=== PATIENT | female | born 1960 | race Caucasian/White ===

== ENCOUNTER 2017-10-11 09:07 | Emergency (ER) | payer OTHER ==
[~2017-10-11] VITALS: Ht 160 cm; Wt 83.9 kg
[2017-10-11 09:34] LABS: Basophils # (auto) 0 uL; Basophils % (auto) 0.2 % (0.0-2.0); Eosinophils # (auto) 0 uL; Hematocrit 40.8 % (36.0-46.0); Hemoglobin 13.6 g/dL (12.2-16.2); Lymphocytes # (auto) 1.8 uL; Mean Corpuscular Hemoglobin 28.5 pg (28.0-32.0); Mean Corpuscular Hgb Conc. 33.4 g/dL (32.0-36.0); Mean Corpuscular Volume 85.4 fL (80.0-100.0); Monocytes # (auto) 0.4 uL; Monocytes % (auto) 7.1 % (0.0-12.0); Neutrophils # (auto) 4.1 uL; Neutrophils % (auto) 64.7 % (37.0-80.0); Platelet Count (auto) 228 10^3/uL (140-450); Red Blood Cells 4.78 10^6/uL (4.0-5.20); White Blood Cell 6.4 10^3/uL (4.4-10.8)
[2017-10-11 10:01] LABS: Alanine Aminotransferase 51 U/L (13-56); Albumin 3.9 g/dL (3.4-5.0); Alkaline Phosphatase 95 U/L (45-117); Anion Gap 8 (5-15); Aspartate Aminotransferase 34 U/L (15-37); BUN/Creatinine Ratio 22.4; Bilirubin, Total 0.4 mg/dL (0.2-1.0); Blood Urea Nitrogen 13 mg/dL (7-18); Calcium 8.9 mg/dL (8.5-10.1); Carbon Dioxide 25 mmol/L (21-32); Chloride 108 mmol/L (98-107); GFR African American 137 mL/min; GFR Non-African American 113 mL/min; Glucose 101 mg/dL (74-106); Magnesium 2.4 mg/dL (1.6-2.6); Potassium 3.7 mmol/L (3.5-5.1); Sodium 141 mmol/L (136-145); Total Protein 7.5 g/dL (6.4-8.2)
[2017-10-11 10:51] LABS: Urine Bacteria FEW /hpf (None Seen); Urine Blood 1+ /uL (Negative); Urine Mucus FEW (None Seen); Urine Specific Gravity 1.019 (1.001-1.035); Urine WBC 22 /hpf (0 - 5)
[2017-10-11 14:05] VITALS: BP 143/77
== END 2017-10-11 14:57 | disposition home or self-care (01) ==
LOC: ER 09:07 → EDBD 09:07 → ER 14:57
DX: R07.89 Other chest pain (principal); N39.0 Urinary tract infection, site not specified; I10 Essential (primary) hypertension; I25.2 Old myocardial infarction; Z90.89 Acquired absence of other organs
CPT/HCPCS: 36415; 71046; 80053; 81001; 83735; 84484; 85025; 93005